=== PATIENT | male | born 1980 | race Caucasian/White ===

== ENCOUNTER 2017-04-06 20:06 | Emergency (ER) | payer SELFPAY ==
[~2017-04-06] VITALS: Ht 167.6 cm; Wt 81.4 kg
[2017-04-06 20:26] VITALS: BP 158/90
--- NOTE | 2017-04-07 01:35 | NUR ---
PATIENT LEFT WITHOUT BEING SEEN BY DR. MARR. NO FURTHER CARE PROVIDED FOR PATIENT.
== END 2017-04-07 01:35 | disposition left against medical advice (07) ==
LOC: MED 20:06
DX: R53.1 Weakness (principal); R06.02 Shortness of breath; Z53.21 Procedure and treatment not carried out due to patient leaving prior to being seen by health care provider

== ENCOUNTER 2018-06-04 21:44 | Emergency (ER) | payer BC, OTHER ==
[~2018-06-04] VITALS: Ht 167.6 cm; Wt 83.9 kg
[2018-06-04 21:51] VITALS: BP 161/107
--- NOTE | 2018-06-04 21:54 | NUR ---
PT AMBULATORY TO ER JUAN C IN STABLE CONDITION W/ STEADY GAIT.
--- NOTE | 2018-06-04 23:13 | NUR ---
PT TO ER BED 1
--- NOTE | 2018-06-04 23:30 | NUR ---
CAME IN WITH C/O DIZZINESS, HEAD PRESSURE, FATIQUE FOR A NOW .
--- NOTE | 2018-06-04 23:50 | NUR ---
Patient being evaluated by physician at bedside.
[2018-06-05 00:02] VITALS: BP 132/90
--- NOTE | 2018-06-05 00:02 | NUR ---
Patient discharged with v/s stable. Written and verbal after care instructions given and explained. Patient verbalized understanding. Ambulatory with steady gait. All questions addressed prior to discharge. Advised to follow up with PMD.
== END 2018-06-05 00:02 | disposition home or self-care (01) ==
LOC: MED 21:44
DX: F41.9 Anxiety disorder, unspecified (principal)
CPT/HCPCS: 99284

== ENCOUNTER 2018-10-29 18:13 | Emergency (ER) | payer SELFPAY ==
--- NOTE | 2018-10-29 18:45 | NUR ---
CALLED TWICE AT THE LOBBY NO ANSWER LWBS
== END 2018-10-29 18:45 | disposition left against medical advice (07) ==
LOC: MED 18:13
DX: R51 Headache (principal); R07.9 Chest pain, unspecified; Z53.21 Procedure and treatment not carried out due to patient leaving prior to being seen by health care provider

== ENCOUNTER 2019-06-17 17:39 | Emergency (ER) | payer SELFPAY ==
[~2019-06-17] VITALS: Ht 167.6 cm; Wt 80.7 kg
[2019-06-17 17:47] VITALS: BP 163/107
--- NOTE | 2019-06-17 18:00 | NUR ---
C/O WEAKNESS, PALPITATIONS AND HEADACHES X3 DAYS. PT DENIES N/V/D. PT STATES HE HAS HAD HYPOKALEMIA IN THE PAST AND CURRENTLY TAKES VIT D FOR A DEFICENCY. PT STATES THAT HE HAS INTERMITTENT SHARP NON RADIATING "SHOOTING" CHEST PAIN, NECK TIGHTNESS, EAR RINGING AND HEADACHES AND HE SAYS HE HAS BEEN TOLD HE HAS BIGH BP IN THE PAST. PT IS A&0 X4, SKIN WARM/DRY. VSS AT THIS TIME. BED IN LOW POSITION, SIDE RAIL UP X1. PT PLACED ON BEDSIDE MARKETING CONTENT COORDINATOR AT THIS TIME.
--- NOTE | 2019-06-17 18:36 | NUR ---
ERMD AT BEDSIDE
[2019-06-17 18:51] VITALS: BP 159/99
--- NOTE | 2019-06-17 18:51 | NUR ---
Patient discharged with v/s stable. Written and verbal after care instructions given and explained. Patient alert, oriented and verbalized understanding of instructions. Ambulatory with steady gait. All questions addressed prior to discharge. ID band removed. Patient advised to follow up with PMD. Rx of Xanax 0.5mg given. Patient educated on indication of medication including possible reaction and side effects. Opportunity to ask questions provided and answered.
== END 2019-06-17 18:51 | disposition home or self-care (01) ==
LOC: MED 17:39
DX: F41.9 Anxiety disorder, unspecified (principal)
CPT/HCPCS: 93005; 99283